=== PATIENT | male | born 1985 | race Caucasian/White ===

== ENCOUNTER 2018-03-24 03:02 | Emergency (ER) | payer OTHER ==
[~2018-03-24] VITALS: Ht 170.2 cm; Wt 75.0 kg
[2018-03-24 03:06] VITALS: BP 136/98
[2018-03-24] MEDS ORDERED: NO HOME MEDS (03:12)
[2018-03-24] MEDS ORDERED: HYDR-3965 PO (13:00)
== END 2018-03-24 04:23 | disposition home or self-care (01) ==
LOC: ER 03:03
DX: S92.061A Displaced intraarticular fracture of right calcaneus, initial encounter for closed fracture (principal); S01.81XA Laceration without foreign body of other part of head, initial encounter; F12.90 Cannabis use, unspecified, uncomplicated; V89.2XXA Person injured in unspecified motor-vehicle accident, traffic, initial encounter; Y93.89 Activity, other specified; Y92.488 Other paved roadways as the place of occurrence of the external cause; Y99.8 Other external cause status
CPT/HCPCS: 29515; 73610; 99284

== ENCOUNTER 2018-04-09 10:01 | Outpatient (CLI) | payer OTHER ==
[~2018-04-09] VITALS: Ht 185.4 cm; Wt 73.3 kg
[2018-04-09 09:59] VITALS: BP 130/79
[~2018-04-09 10:01] MED LIST: HYDR-3965 PO; NO HOME MEDS
[2018-04-09 16:01] VITALS: BP 130/79
== END 2018-04-09 11:25 | disposition home or self-care (01) ==
LOC: ORTHO 10:01
PROVIDERS: ATTEND Nurse Practitioner Family
DX: S92.041A Displaced other fracture of tuberosity of right calcaneus, initial encounter for closed fracture (principal); F17.210 Nicotine dependence, cigarettes, uncomplicated; F10.10 Alcohol abuse, uncomplicated; F12.90 Cannabis use, unspecified, uncomplicated; Z90.89 Acquired absence of other organs; X58.XXXA Exposure to other specified factors, initial encounter; Y93.89 Activity, other specified; Y92.89 Other specified places as the place of occurrence of the external cause; Y99.8 Other external cause status
CPT/HCPCS: 73650; 99215

== ENCOUNTER 2018-05-09 13:04 | Outpatient (CLI) | payer MEDICAID ==
[2018-05-09 13:03] VITALS: BP 117/72
[~2018-05-09 13:04] MED LIST changes: -HYDR-3965 PO
== END 2018-05-09 13:45 | disposition home or self-care (01) ==
LOC: ORTHO 13:04
PROVIDERS: ATTEND Nurse Practitioner Family
DX: S92.0 Fracture of calcaneus (principal); F17.210 Nicotine dependence, cigarettes, uncomplicated; G89.29 Other chronic pain; M54.9 Dorsalgia, unspecified; F10.10 Alcohol abuse, uncomplicated; Z56.0 Unemployment, unspecified; X58.XXXD Exposure to other specified factors, subsequent encounter
CPT/HCPCS: 73650; 99213; A4590

== ENCOUNTER 2018-05-30 14:27 | Outpatient (CLI) | payer MEDICAID ==
[2018-05-30 14:28] VITALS: BP 129/79
== END 2018-05-30 14:52 | disposition home or self-care (01) ==
LOC: ORTHO 14:27
PROVIDERS: ATTEND Nurse Practitioner Family
DX: S92.0 Fracture of calcaneus (principal); M85.88 Other specified disorders of bone density and structure, other site; F12.90 Cannabis use, unspecified, uncomplicated; F17.210 Nicotine dependence, cigarettes, uncomplicated; F10.10 Alcohol abuse, uncomplicated; Z56.0 Unemployment, unspecified; X58.XXXD Exposure to other specified factors, subsequent encounter
CPT/HCPCS: 73650; 99213

== ENCOUNTER 2018-06-20 14:16 | Outpatient (CLI) | payer MEDICAID ==
[2018-06-20 13:56] VITALS: BP 156/82
== END 2018-06-20 14:38 | disposition home or self-care (01) ==
LOC: ORTHO 14:16
PROVIDERS: ATTEND Nurse Practitioner Family
DX: S92.061D Displaced intraarticular fracture of right calcaneus, subsequent encounter for fracture with routine healing (principal); I10 Essential (primary) hypertension; M85.871 Other specified disorders of bone density and structure, right ankle and foot; F12.90 Cannabis use, unspecified, uncomplicated; F17.210 Nicotine dependence, cigarettes, uncomplicated; F10.10 Alcohol abuse, uncomplicated; Z56.0 Unemployment, unspecified; X58.XXXD Exposure to other specified factors, subsequent encounter
CPT/HCPCS: 73650; 99213

== ENCOUNTER 2018-07-18 13:28 | Outpatient (CLI) | payer MEDICAID ==
[2018-07-18 13:04] VITALS: BP 152/97
== END 2018-07-18 13:47 | disposition home or self-care (01) ==
LOC: ORTHO 13:28
PROVIDERS: ATTEND Nurse Practitioner Family
DX: S92.001D Unspecified fracture of right calcaneus, subsequent encounter for fracture with routine healing (principal); M85.88 Other specified disorders of bone density and structure, other site; F17.210 Nicotine dependence, cigarettes, uncomplicated; F12.90 Cannabis use, unspecified, uncomplicated; Z56.0 Unemployment, unspecified; Z72.89 Other problems related to lifestyle; V89.2XXD Person injured in unspecified motor-vehicle accident, traffic, subsequent encounter
CPT/HCPCS: 73650; 99213

== ENCOUNTER 2018-08-08 13:04 | Outpatient (CLI) | payer MEDICAID ==
[2018-08-08 12:59] VITALS: BP 149/88
== END 2018-08-08 13:39 | disposition home or self-care (01) ==
LOC: ORTHO 13:04
PROVIDERS: ATTEND Nurse Practitioner Family
DX: S92.001D Unspecified fracture of right calcaneus, subsequent encounter for fracture with routine healing (principal); M85.88 Other specified disorders of bone density and structure, other site; F17.210 Nicotine dependence, cigarettes, uncomplicated; F12.90 Cannabis use, unspecified, uncomplicated; Z56.0 Unemployment, unspecified; Z72.89 Other problems related to lifestyle; V89.2XXD Person injured in unspecified motor-vehicle accident, traffic, subsequent encounter
CPT/HCPCS: 73650; 99213

== ENCOUNTER 2018-08-23 14:06 | Outpatient (CLI) | payer MEDICAID | END 2018-08-23 23:59 | disposition home or self-care (01) | LOC: RAD 14:06 | PROVIDERS: ATTEND Nurse Practitioner Family | DX: S83.421A Sprain of lateral collateral ligament of right knee, initial encounter (principal); M94.261 Chondromalacia, right knee; M17.11 Unilateral primary osteoarthritis, right knee; M25.461 Effusion, right knee; F17.200 Nicotine dependence, unspecified, uncomplicated; X58.XXXA Exposure to other specified factors, initial encounter; Y93.89 Activity, other specified; Y92.89 Other specified places as the place of occurrence of the external cause; Y99.8 Other external cause status | CPT/HCPCS: 73721 ==

== ENCOUNTER 2018-09-04 13:01 | Outpatient (CLI) | payer MEDICAID ==
[2018-09-04 13:11] VITALS: BP 150/84
== END 2018-09-04 13:38 | disposition home or self-care (01) ==
LOC: ORTHO 13:01
PROVIDERS: ATTEND Nurse Practitioner Family
DX: S92.001G Unspecified fracture of right calcaneus, subsequent encounter for fracture with delayed healing (principal); S83.421D Sprain of lateral collateral ligament of right knee, subsequent encounter; M17.11 Unilateral primary osteoarthritis, right knee; F17.210 Nicotine dependence, cigarettes, uncomplicated; F12.90 Cannabis use, unspecified, uncomplicated; Z56.0 Unemployment, unspecified; V89.2XXD Person injured in unspecified motor-vehicle accident, traffic, subsequent encounter
CPT/HCPCS: 73650; 99213

== ENCOUNTER 2025-01-13 16:49 | Emergency (ER) | payer MEDICAID ==
[~2025-01-13] VITALS: Ht 182.9 cm; Wt 86.9 kg
[2025-01-13 17:00] VITALS: TEMP 98.5
--- NOTE | 2025-01-13 19:33 | RADIOLOGY REPORT ---
EXAMINATIONS: 2 views of the right knee CLINICAL HISTORY: foreign bodyRIGHT COMPARISON: None Findings and impression: Approximately 1 cm curvilinear metallic density projecting within the cutaneous tissues overlying the proximal anterior tibia. No grossly displaced fractures or dislocations evident on the provided views. Tricompartmental arthritic changes.
[2025-01-13 22:53] VITALS: BP 122/78; PULSE 74; RESP 16; O2SAT 99
== END 2025-01-13 22:54 | disposition left against medical advice (07) ==
LOC: ER 16:49
DX: S80.851A Superficial foreign body, right lower leg, initial encounter (principal); Z53.21 Procedure and treatment not carried out due to patient leaving prior to being seen by health care provider; W44.8XXA Other foreign body entering into or through a natural orifice, initial encounter; Y93.89 Activity, other specified; Y92.89 Other specified places as the place of occurrence of the external cause; Y99.8 Other external cause status
CPT/HCPCS: 73564

== ENCOUNTER 2025-01-21 00:32 | Emergency (ER) | payer MEDICAID ==
[~2025-01-21] VITALS: Ht 182.9 cm; Wt 84.8 kg
--- NOTE | 2025-01-21 00:52 | Physician Documentation ---
History of Present Illness ~ Chief Complaint: Leg Pain Stated Complaint: FALL,LEG INJURY Time Seen by MD: 00:51 Primary Medical Doctor: jyoti steve HPI Patient presents to the emergency room complaining of a splinter in his right leg. Patient states he slid down an embankment and a piece a man's the need to got stuck in him. Tetanus reported to be up-to-date. Movements intact however he does state that he had does not feel an area of the skin around the puncture site. Tetanus witin 5 years: Yes Medication Reconciliation Allergies: Coded Allergies: No Known Allergies (Unverified , 01/13/25) Miscellaneous Medications Home Med List (No Home Medications), (Reported) Past Medical History Past Medical History: Extremity Fracture, [place] Past Surgical History: appendectomy, orthopedic surgeries Alcohol Use: Abuse Drug Use: marijuana Lives with: Other Lives In: Home Occupation: unemployed Review of Systems ROS All review of systems negative except as per HPI Physical Exam Vital Signs: Temperature: 99.1, Source: Oral, Heart Rate: 118, Respiratory Rate: 16, BP: 151/103, Pulse Oximetry: 99, Weight: 84.800 Physical Exam General: Patient is awake, alert, oriented x4 in no acute distres Head: Normocephalic and atraumatic. Eyes: Conjunctival normal. EOMI. PERRL. ENT: Mucous membranes moist. Neck: Supple, trachea is midline. Chest: Clear to auscultation bilaterally without rales, rhonchi, or wheezes. There is no accessory muscle use or retractions. Cardiac: RRR without murmurs, gallops, or rubs. Extremities: Normal strength. Normal range of motion. Palpable splinter and lateral aspect of patient's left lower extremity measuring approximately 5 cm with associated puncture adrianne in oozing blood. Procedures Procedures Foreign body removal: Status post informed verbal consent patient was sterilely cleaned and draped. Patient was anesthetized with 1% lidocaine with epinephrine to a total of 3 cc. 11. Blade utilized to make 0.5 incision adjacent to puncture wound. Forceps introduced into wound and a 5 cm piece of wood was extracted from patient's left medial calf. No palpable foreign bodies after removal could be appreciated. Wound was then thoroughly irrigated and bandaged with antibiotic ointment. Patient tolerated procedure well without complication. Total time of procedure 10 minutes. Progress Results/Orders Results/Orders Orders - CASSIE AGUERO MD Dressing Orders (01/21/25 00:59) Laceration/I&D Tray Set Up (01/21/25 00:59) Wound Care Orders (01/21/25 00:59) Completed Orders - CASSIE AGUERO MD Lidocaine 1% W/Epi 1:200,000 (Xylocaine (01/21/25 01:00) Bacitracin Ointment (Bacitracin Ointment (01/21/25 01:00) Ondansetron Disint. Tablet (Zofran Odt T (01/21/25 01:00) Sulfamethox/Trimetho. Ds Tab (Septra Ds (01/21/25 01:00) Lidocaine 1% W/Epi 1:100,000 (Xylocaine (01/21/25 01:10) Vital Signs 01/21/25 01/21/25 00:34 00:57 Temp 99.1 Pulse 118 106 Resp 16 17 B/P (MAP) 151/103 154/102 (119) Pulse Ox 99 98 O2 Flow Rate 0 Medical Decision Making Findings Patient presented to the emergency room for evaluation of a splinter in his left lower extremity. Differentials include but are not limited to splinter, nerve damage, vascular damage, soft tissue damage. Patient had large splinter removed as per procedure note. Wound care discussed as well as the need to return for signs of infection. Given obvious contamination of wound antibiotics initiated. Tetanus reported to be up-to-date. Departure Disposition: HOME / SELF CARE / HOMELESS Impression: Primary Impression: Splinter Condition: Improved Discharge Instructions: Wound Care, Adult Referrals: NO PRIMARY CARE PROVIDER (PCP) Prescriptions Sulfamethoxazole/Trimethoprim (Bactrim Ds Tablet) 800 Mg-160 Mg Tablet 1 TAB PO Q12H for 10 Days, #20 TAB Prov: CASSIE AGUERO MD 01/21/25 Education Educated: Patient Educated regarding: diagnosis, treatment, need for follow up Signature Scribe Signature: No scribe Attestation: The note accurately reflects work and decisions made by me.Cassie Aguero MD 01/21/25 01:27 CASSIE AGUERO MD Jan 21, 2025 00:52
[2025-01-21 00:57] VITALS: BP 154/102; PULSE 106; RESP 17; O2SAT 98
[2025-01-21] MEDS ORDERED: SULF1TAB49 PO (01:26)
[2025-01-21] MEDS: LIDOcaine 1% W/epiNEPHrine 1:100,000 20ml vial SQ ONE (01:39)
[2025-01-21] MEDS: LIDOcaine 1% W/epiNEPHrine 1:200,000 10ml vial IJ ONE (01:39)
[2025-01-21] MEDS: bacitracin 15gm ointment TP ONE (01:40)
[2025-01-21] MEDS: sulfamethoxazole/trimethoprim DS (800/160mg) tablet PO ONE (01:40)
[2025-01-21] MEDS: ondansetron 4mg rapidly disintigrating tab PO ONE (01:41)
[2025-01-21 01:58] VITALS: TEMP 99.1
== END 2025-01-21 02:00 | disposition home or self-care (01) ==
LOC: ER 00:32
DX: S80.852A Superficial foreign body, left lower leg, initial encounter (principal); W45.8XXA Other foreign body or object entering through skin, initial encounter; Y93.89 Activity, other specified; Y92.89 Other specified places as the place of occurrence of the external cause; Y99.8 Other external cause status
CPT/HCPCS: 10120; 99285; J7030; A6258; A6446; A6449